=== PATIENT | male | born 1985 | race Caucasian/White ===

== ENCOUNTER 2022-08-19 13:32 | Inpatient (IN) | payer BC, MEDICAID, SELFPAY ==
[2022-08-19 14:35] VITALS: BP 122/74; PULSE 98; RESP 18; TEMP 36.4; O2SAT 97
[2022-08-19 14:38] VITALS: BMI 27.3
[2022-08-19] MEDS: nicotine 2 mg Gum BUCCAL (17:40)
[2022-08-19 19:00] LABS: Basophils # 0.1 10^3/uL (0.0-0.1); Basophils % 0.7 %; Eosinophils # 0.2 10^3/uL (0.0-0.8); Eosinophils % 1.9 %; Hematocrit 44.3 % (42.0-52.0); Hemoglobin 14.5 g/dL (11.7-16.6); Lymphocytes # 3.2 10^3/uL (0.8-4.8); Lymphocytes % 33.1 %; Mean Corpuscular HGB Conc 32.7 g/dL (30.0-36.0); Mean Corpuscular Volume 91.5 fl (80-94); Mean Platelet Volume 9.5 fL (7.4-10.4); Monocytes # 0.8 10^3/uL (0.2-0.9); Monocytes % 8.3 %; Neutrophils # 5.28 10^3/uL (1.8-7.7); Neutrophils % 55.1 %; Nucleated Red Blood Cells % 0 %; Platelet Count 282 10^3/cmm (130-400); Red Blood Count 4.84 10^6/uL (4.1-5.3); Red Cell Distribution Width 12.8 % (12.1-15.1); White Blood Count 9.6 10^3/uL (4.0-10.0)
[2022-08-19] MEDS: quetiapine 100 mg Tablet PO (20:37)
[2022-08-19] MEDS: hyDROXYzine 25 mg Capsule 50 MG PO (20:37)
[2022-08-19] MEDS: OLANZapine 5 mg ODT PO (20:37)
[2022-08-19 22:00] VITALS: BP 115/72; PULSE 95; RESP 17; TEMP 36.4; O2SAT 97
[2022-08-19 22:09] LABS: Amphetamines Screen Urine Negative (Negative); Barbiturates Screen Urine Negative (Negative); Benzodiazepines Screen Urine Negative (Negative); Cocaine Screen Urine Negative (Negative); Opiate Screen Urine Negative (Negative); PCP Screen Urine Negative (Negative); THC Screen Urine Negative (Negative)
[2022-08-20 06:00] VITALS: BP 136/78; PULSE 76; RESP 18; TEMP 36.6; O2SAT 96
[2022-08-20] MEDS: pneumococcal (23 valent) SDV 0.5 mL IM (08:32)
[2022-08-20] MEDS: nicotine 21 mg Patch 1 PATCH TRANSDERMA (11:40)
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
[2022-08-20] MEDS: OLANZapine 5 mg ODT PO (13:51)
[2022-08-20] MEDS: hyDROXYzine 25 mg Capsule 50 MG PO (13:51)
[2022-08-20 14:00] VITALS: BP 128/82; PULSE 79; RESP 18; TEMP 36.9; O2SAT 98
[2022-08-20] MEDS: nicotine 2 mg Gum BUCCAL (19:06)
[2022-08-20] MEDS: quetiapine 100 mg Tablet PO (20:25)
[2022-08-20 22:00] VITALS: BP 100/69; PULSE 90; RESP 17; TEMP 36.6; O2SAT 97
[2022-08-21 06:00] VITALS: RESP 16
[2022-08-21 10:08] VITALS: BP 100/69
[2022-08-21] MEDS: nicotine 2 mg Gum BUCCAL (10:08)
[2022-08-21] MEDS: hyDROXYzine 25 mg Capsule 50 MG PO (10:08)
[2022-08-21] MEDS: OLANZapine 5 mg ODT PO (10:08)
[2022-08-21] MEDS: cloNIDine 0.1 mg Tablet PO (10:08)
--- NOTE | 2022-08-21 13:39 | W.PM.NPUPNS ---
Subjective NPU Subjective: Patient presented today reporting that he did speak with his p.o. and he either needs to return to the rehab program or be prepared for the consequences. The identifies that he would like to spend some time at home for Thanksgiving but that he does not want to have any consequences for doing so. Treatment team working with p.o. and the rehab to arrange his return without issue. We discussed based on the conversations that will not be able to happen until Wednesday. He was agreeable to restarting his medication after discussion of the risks, benefits and alternatives. Mental Status Exam MSE Comments: This is a well nourished, well developed white man in hospital scrubs with adequate grooming and eye contact. No abnormal movements. Cooperative with exam in mild distress. Speech was normal rate and volume. Mood described as a little better I guess, affect is congruent. Thought process, organized. Thought content: patient denies suicidal or homicidal ideation, no delusions reported or noted and did not appear to be attending to internal stimuli. Attention and concentration are intact and memory appeared reliable but none were formally tested. He is alert and oriented times three. Insight and judgment are fair. Impulse control is limited. Vitals/I&O/Wt Last Vital Signs Temp 97.9 F 08/20/22 22:00 Pulse 90 08/20/22 22:00 Resp 17 08/20/22 22:00 BP 100/69 08/20/22 22:00 Pulse Ox 97 08/20/22 22:00 O2 Del Method 08/20/22 22:00 Weight last 48 hrs Weight 83.915 kg Data NPU 08/19/22 18:42 A&P Assessment and plan (1) Major depressive disorder: (2) Anxiety: (3) Methamphetamine use disorder, severe: Plan This is a 36 year old white man with a history of methamphetamine use and genetic loading for addiction issues who presents after recently stopping all of his medications reporting he needs to be back on his medications so he can return to rehab to finish out his stay. 1. Continue current medications and restart medications that had been stopped about a week ago. 2. Encourage individual, group and milieu therapy 3. Continue q-15 minute check for safety 4. Recommend sober living treatment at the highest level of care to which the patient is willing to commit. Return to rehab directly from discharge here. Involuntary Hold Information 96 Hour Hold: 96 Hour Involuntary Admission: No Attestations NPU Medical Necessity Statement*: Inpatient hospitalization is medically necessary and the clinically appropriate intervention at this time. We will monitor medications and make changes as indicated. Likely length of stay is three to five days. Coding Level of Care Code Acute Sustainability Coach for [facility] Fwd Diagnoses Major depressive disorder F32.9 Anxiety F41.9 Methamphetamine use disorder, severe F15.20
[2022-08-21 14:00] VITALS: BP 118/76; PULSE 93; RESP 18; TEMP 36.6; O2SAT 99
[2022-08-21] MEDS: nicotine 21 mg Patch 1 PATCH TRANSDERMA (16:07)
[2022-08-21] MEDS: BuSPIRONE 10 mg Tablet 15 MG PO (17:37)
[2022-08-21] MEDS: divalproex DR 500 mg Tablet PO (20:23)
[2022-08-21] MEDS: quetiapine 100 mg Tablet PO (20:23)
[2022-08-21] MEDS: ARIPiprazole 10 mg Tablet 20 MG PO (20:24)
[2022-08-21 22:00] VITALS: BP 124/81; PULSE 104; RESP 17; TEMP 36.7; O2SAT 97
[2022-08-22 06:00] VITALS: RESP 18
--- NOTE | 2022-08-22 09:33 | P.NPUPN_ITS ---
Subjective NPU Subjective: Patient is in today reporting that he is still interested in returning to the rehab on Wednesday. He was thankful that his medications had been restarted and denied any side effects of those medications. We discussed Dr. Woody being here tomorrow and that he understood the plan. Mental Status Exam MSE Comments: This is a well nourished, well developed white man in hospital scrubs with adequate grooming and eye contact. No abnormal movements. Cooperative with exam in mild distress. Speech was normal rate and volume. Mood described as feeling better on medication, affect is congruent. Thought process, organized. Thought content: patient denies suicidal or homicidal ideation, no delusions reported or noted and did not appear to be attending to internal stimuli. Attention and concentration are intact and memory appeared reliable but none were formally tested. He is alert and oriented times three. Insight and judgment are fair. Impulse control is limited. Vitals/I&O/Wt Last Vital Signs Temp 98.0 F 08/21/22 22:00 Pulse 104 H 08/21/22 22:00 Resp 18 08/22/22 06:00 BP 124/81 08/21/22 22:00 Pulse Ox 97 08/21/22 22:00 O2 Del Method 08/21/22 22:00 Data NPU 08/19/22 18:42 A&P Assessment and plan (1) Major depressive disorder: (2) Anxiety: (3) Methamphetamine use disorder, severe: Plan This is a 36 year old white man with a history of methamphetamine use and genetic loading for addiction issues who presents after recently stopping all of his medications reporting he needs to be back on his medications so he can return to rehab to finish out his stay. 1. Continue current medications and restart medications that had been stopped about a week ago. 2. Encourage individual, group and milieu therapy 3. Continue q-15 minute check for safety 4. Recommend sober living treatment at the highest level of care to which the patient is willing to commit. Return to rehab directly from discharge here likely Wednesday. Involuntary Hold Information 96 Hour Hold: 96 Hour Involuntary Admission: No Attestations NPU Medical Necessity Statement*: Inpatient hospitalization is medically necessary and the clinically appropriate intervention at this time. We will monitor medications and make changes as indicated. Likely length of stay is 2-4 days. Coding Level of Care Code Acute Human Relations Professor for g Fwd Diagnoses Major depressive disorder F32.9 Anxiety F41.9 Methamphetamine use disorder, severe F15.20
[2022-08-22] MEDS: BuSPIRONE 10 mg Tablet 15 MG PO ×2 (09:57→17:35)
[2022-08-22] MEDS: divalproex DR 500 mg Tablet PO ×3 (09:57→19:55)
[2022-08-22] MEDS: ARIPiprazole 10 mg Tablet 20 MG PO (09:57)
[2022-08-22] MEDS: nicotine 2 mg Gum BUCCAL (10:28)
[2022-08-22 14:00] VITALS: BP 119/72; PULSE 101; RESP 20; TEMP 36.6; O2SAT 97
[2022-08-22] MEDS: nicotine 21 mg Patch 1 PATCH TRANSDERMA (15:51)
[2022-08-22] MEDS: quetiapine 100 mg Tablet PO (19:55)
[2022-08-22] MEDS: hyDROXYzine 25 mg Capsule 50 MG PO (19:55)
[2022-08-22 21:29] VITALS: BP 120/79; PULSE 96; RESP 16; TEMP 36.6; O2SAT 95
[2022-08-23 06:00] VITALS: BP 115/74; PULSE 99; RESP 18; TEMP 37.1; O2SAT 95; BMI 27.3
[2022-08-23] MEDS: BuSPIRONE 10 mg Tablet 15 MG PO ×2 (08:18→17:03)
[2022-08-23] MEDS: ARIPiprazole 10 mg Tablet 20 MG PO ×2 (08:18→20:11)
[2022-08-23] MEDS: divalproex DR 500 mg Tablet PO ×3 (08:18→20:11)
[2022-08-23 14:00] VITALS: BP 131/58; PULSE 104; RESP 17; TEMP 36.4; O2SAT 96
[2022-08-23] MEDS: acetaminophen 325 mg Tablet 650 MG PO (15:14)
[2022-08-23 15:15] VITALS: BP 115/74
[2022-08-23] MEDS: hyDROXYzine 25 mg Capsule 50 MG PO ×2 (15:15→21:44)
[2022-08-23] MEDS: cloNIDine 0.1 mg Tablet PO (15:15)
--- NOTE | 2022-08-23 15:16 | PC.NURSE ---
PRN MEDICATIONS PT C/O STUFFED UP NOSE AND CONGESTION. TYLENOL GIVEN ORDERED FOR DISCOMFORT. CLONIDINE AND VISTARIL GIVEN ORDERED FOR ANXIETY AND WITHDRAW SYMPTOMS. EDUCATED PT TO INFORM THIS RN IF IT HELPS OR NOT. PT STATES HE WILL LET RN KNOW.
[2022-08-23] MEDS: ibuprofen 600 mg Tablet PO (17:03)
--- NOTE | 2022-08-23 17:27 | P.NPUPN_ITS ---
Subjective NPU Subjective: Patient is a 36-year-old white male admitted with suicidal ideation as he stated that he attempted to try to enter into a rehabilitation without his medications with significant decompensation. Patient reports that starting his medications have been helpful. He reports that he wishes to leave here at this time and reports that he would be willing to wait till tomorrow to discuss whether he could return to rehab at the rehab center as he currently was not able to have a ride there at this time. He also reported that there was some legal issues and stated that he needed to talk to his parking enforcement officer. Mental Status Exam MSE Comments: This is a well nourished, well developed white man in hospital scrubs with adequate grooming and eye contact. No abnormal movements. Cooperative with exam in mild distress. Speech was normal rate and volume. Mood described as better. His affect was mood congruent. Thought process linear and organized. Thought content: patient denies suicidal or homicidal ideation, no delusions reported or noted and did not appear to be attending to internal stimuli. Attention and concentration are intact and memory appeared reliable but none were formally tested. He is alert and oriented times three. Insight and judgment are fair. Impulse control is limited. Vitals/I&O/Wt Last Vital Signs Temp 97.6 F 08/23/22 14:00 Pulse 104 H 08/23/22 14:00 Resp 17 08/23/22 14:00 BP 115/74 08/23/22 15:15 Pulse Ox 96 08/23/22 14:00 O2 Del Method 08/23/22 06:00 Weight last 48 hrs Weight 83.915 kg Data NPU 08/19/22 18:42 A&P Assessment and plan (1) Major depressive disorder: (2) Anxiety: (3) Methamphetamine use disorder, severe: Plan This is a 36 year old white man with a history of methamphetamine use and genetic loading for addiction issues who presents after recently stopping all of his medications reporting he needs to be back on his medications so he can return to rehab to finish out his stay. 1. Continue current medications including seroquel 100mg at night, buspar 15mg bid, abilify 20mg joi, Depakote 500mg tid. 2. Encourage individual, group and milieu therapy 3. Continue q-15 minute check for safety 4. Recommend sober living treatment at the highest level of care to which the patient is willing to commit. Return to rehab directly from discharge here. Involuntary Hold Information 96 Hour Hold: 96 Hour Involuntary Admission: No Attestations NPU Medical Necessity Statement*: Inpatient hospitalization is medically necessary and the clinically appropriate intervention at this time. We will monitor medications and make changes as indicated. Likely length of stay is three to five days. Coding Level of Care Code Established Pt Acute Zinc Plate Cutter for g Fwd Patient Type Established History Problem Focused Exam Problem Focused Medical Decision Making Straight Forward Diagnoses Major depressive disorder F32.9 Anxiety F41.9 Methamphetamine use disorder, severe F15.20
[2022-08-23 19:45] VITALS: BP 109/73; PULSE 92; RESP 17; O2SAT 98
[2022-08-23] MEDS: quetiapine 100 mg Tablet PO (20:11)
[2022-08-24 06:00] VITALS: RESP 17
[2022-08-24] MEDS: ARIPiprazole 10 mg Tablet 20 MG PO (08:25)
[2022-08-24] MEDS: divalproex DR 500 mg Tablet PO (08:26)
[2022-08-24] MEDS: BuSPIRONE 10 mg Tablet 15 MG PO (08:26)
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
[2022-08-24 12:45] VITALS: RESP 17
== END 2022-08-24 14:26 | disposition home or self-care (01) | DRG 881 ==
PROVIDERS: Admitting Provider Psychiatry & Neurology Psychiatry; Visit Provider Psychiatry & Neurology Psychiatry
DX: F32.9 Major depressive disorder, single episode, unspecified (principal); R45.851 Suicidal ideations; F15.20 Other stimulant dependence, uncomplicated; F17.210 Nicotine dependence, cigarettes, uncomplicated; F10.90 Alcohol use, unspecified, uncomplicated; F12.90 Cannabis use, unspecified, uncomplicated; F41.9 Anxiety disorder, unspecified; F43.10 Post-traumatic stress disorder, unspecified
CPT/HCPCS: 36415; 80306; 85025; 90471; 90686; 90732; 97150; 97165